=== PATIENT | female | born 1985 | race Caucasian/White ===

== ENCOUNTER 2017-02-08 09:36 | Inpatient (IN) ==
[~2017-02-08 09:36] MED LIST: Famotidine 20 MG/2 ML VIAL IVP PRN; Metoclopramide 10 MG/2 ML VIAL IVP PRN; Naloxone 0.4 MG/ML INJ IVP PRN
--- NOTE | 2017-02-08 09:42 | OB/GYN History & Physical ---
Date of Encounter: 02/08/17 Time of Encounter: 09:39 Assessment and Plan (1) 39 weeks gestation of Current visit: Yes Status: Acute 39 weeks 3 days admit to labor and delivery for favorable cervix at term Cytotec 50 mcg and AROM pain medication and epidural anesthesia upon request IV fluids and admission orders initiated anticipate History of Present Illness Chief complaint: Labor evaluation HPI: Ms. Holley is a 31 year old female 39 weeks 3 days presents for labor evaluation. Seen and evaluated in the office by her OB Dr. Miller, cervix was 6 to 7/80%/-1 with a bulging bag. Estimated due date 02/12/2017. No complaints at this time such as recent illness, fever, headache, changes in vision, abdominal/epigastric pain. Denies any vaginal bleeding, contractions, or leakage of fluid. No complications to date. Endorses good movement. History of 3 normal spontaneous vaginal deliveries without complications. GBS negative, HBV nonreactive, Rubella immune, other serologies reviewed and are negative. Her blood type is O positive. Past Med Surg Social Fam HX - Past Medical History Medical history: other (Hypothyroid) Psychiatric history: no psych history - Past Surgical History Surgical History: appendectomy - Social History Smoking Status: Never smoker Smokeless Tobacco Status: No Alcohol use: none Drug use: none - Family History Mother Hx Family Cardiac Disorders: No Hx Family Respiratory Disorders: No Hx Family Cancer: No Hx Family GI Disorders: No Hx Family Endocrine Disorder: No Hx Family Neuromuscular Disorders: No Hx Family Neurologic Disorders: No Hx Family HEENT Disorders: No Hx Family Autoimmune Disorders: No Obstetrical History - Pregnancies : 4 Para: 3 Term: 3 : 0 Ab's: 0 Livin Medications and Allergies [place] Thyroid 1 tab PO BID 02/08/17 [History] Calcium Carbonate [Calcium] 1 tab PO TID 02/08/17 [History] Kelp 1 each PO DAILY 02/08/17 [History] [place]-3/Dha/Epa/Fish Oil [Fish Oil 1,000 mg Softgel] 2 tab PO DAILY 02/08/17 [ History] Vit Calc,Iron,Folic [ Vitamins] 1 tab PO DAILY 02/08/17 [ History] Allergies No Known Allergies Allergy (Verified 02/08/17 10:07) Review of System OB All systems PM: reviewed and no additional remarkable complaints except as stated Exam - Constitutional Constitutional: well developed, well nourished, no acute distress, average body habitus - HEENT HEENT: EOMI, Normocephaly, Mucus Membranes Moist - Neck Neck exam: full ROM, normal inspection, supple - Lungs Respiratory exam: CTAB - Cardiovascular Cardiovascular exam: RRR, +S1, +S2 - Abdomen Abdomen: Present: bowel sounds normal, gravid, non tender - Extremities Extremities exam: full ROM, normal capillary refill, normal inspection, pedal edema (mild), warm Deep Tendon Reflex Grade: 2+ Normal - Uterus Uterus exam: Present: normal size Results Result Diagrams: 02/08/17 09:55 All other labs normal. - VTE Reasons for not Prescribing Prophylaxis: Treatment not Indicated - Low risk for VTE
[2017-02-08] MEDS ORDERED: Ringers Solution, Lactated 1,000 ML IVC SCH (09:45)
[2017-02-08 10:07] LABS: Basophils % 0.2 %; Eosinophils # 0.1 K/mcL (0.0-0.6); Eosinophils % 0.6 %; Hematocrit 35.3 % (35.3-44.9); Hemoglobin 12.1 g/dL (11.5-15.4); Immature Granulocytes % 0.5 % (0-4); Lymphocytes # 1.9 K/mcL (0.6-4.6); Lymphocytes % 22.2 %; Mean Corpuscular HGB Conc 34.3 g/dL (31.6-35.5); Mean Corpuscular Hemoglobin 31.8 pg (28.0-33.3); Mean Corpuscular Volume 92.7 fL (83.0-100.0); Mean Platelet Volume 9.3 fL (9.4-12.4); Monocytes # 0.6 K/mcL (0.0-1.3); Monocytes % 6.8 %; Platelet Count 168 K/mcL (140-400); Red Blood Count 3.81 M/mcL (3.82-4.97); Red Cell Distribution Width 13.4 % (11.5-14.5); Segmented Neutrophils % 69.7 %
--- NOTE | 2017-02-08 13:10 | OB Labor Progress Note ---
Date of Encounter: 02/08/17 Time of Encounter: 13:08 Labor Progress Note - Subjective Subjective: Pt reports mild pain. - Cervix Cervix: 7/80/-1 - Heart Tones Heart Tones: Category I - [place]: Q2-3 minutes - Interventions Interventions: AROM for large amount clear fluid. - Plan Plan: Continue to monitor. Allow ambulation and intermittent monitoring. Anticipate .
[2017-02-08] MEDS ORDERED: Ringers Solution, Lactated 500 ML IVC ONE (13:47)
[2017-02-08] MEDS ORDERED: *HR* Ropivacaine/PF 0.2% 10 ML AMPUL EP ONE (13:47)
[2017-02-08] MEDS ORDERED: *HR* FentaNYL (PF) 100 MCG/2 ML VIAL EP ONE (13:47)
[2017-02-08] MEDS ORDERED: EPHEDrine 50 MG/ML VIAL IVP PRN (13:47)
--- NOTE | 2017-02-08 13:50 | Anesthesia Evaluation PreOp ---
Date of Encounter: 02/08/17 Time of Encounter: 13:40 - Past History Planned Operation: Labor Epidural Cardiac History: Denies any Significant Hx Pulmonary History: Denies Any Significant HX PRESS LEADER History: Denies Any Significant HX Other Medical History: Thyroid (Hypo) Anesthesia History: No Prior Anesthetic Complications, Past Anesthesia (Appy) : Yes Alcohol Use: none Drug use: none Medications and Allergies [place] Thyroid 1 tab PO BID 02/08/17 [History] Calcium Carbonate [Calcium] 1 tab PO TID 02/08/17 [History] Kelp 1 each PO DAILY 02/08/17 [History] [place]-3/Dha/Epa/Fish Oil [Fish Oil 1,000 mg Softgel] 2 tab PO DAILY 02/08/17 [ History] Vit Calc,Iron,Folic [ Vitamins] 1 tab PO DAILY 02/08/17 [ History] Allergies No Known Allergies Allergy (Verified 02/08/17 10:07) - Meds/Allergy Pre-op Review Medications Reviewed: Yes Allergies Reviewed: Yes Beta Blockers on Current Med List: No Anesthesia Results - Labs 02/08/17 09:55 Anesthesia Exam Weight: 1.6m NPO (# of Hours): 81.1kg Pain Scale: 7 Pain Scale Used: Numeric (1 - 10) - HEENT Pupil (Motor): Pupils equal Mallampati: II Teeth: Normal Oral Opening: Greater than 3 - PRESS LEADER LOC: Oriented PRESS LEADER Motor: Normal RUE, Normal LUE, Normal RLE, Normal LLE, Normal Face PRESS LEADER Sensory: Normal: RUE, LUE, RLE, LLE, Face - Cardiac Rhythm: Regular Murmur: None JVD: No Carotid Bruit: No - Pulmonary Breath Sounds: bilateral Clear Respiratory Effort: Symmetrical Anesthesia Assess/Plan ASA Score: 2 Modified Bryce Scale for Level of Consciousness: Cooperative, oriented, and tranquil Anesthetic Plan: Regional Monitoring Plan: Standard Monitors Recovery Plan: Other
[2017-02-08] MEDS ORDERED: Epidural Premix (fent/bupiv) 110 ML EP ONE (13:51)
[2017-02-08] MEDS ORDERED: *HR* Ropivacaine/PF 0.2% 10 ML AMPUL ONE (13:51)
[2017-02-08] MEDS ORDERED: *HR* FentaNYL (PF) 100 MCG/2 ML VIAL ONE (13:51)
[2017-02-08] MEDS ORDERED: Lidocaine 1% 20 ML MDV ONE (13:57)
[2017-02-08] MEDS ORDERED: Epidural Premix (fent/bupiv) 110 ML EP SCH (14:00)
[2017-02-08] MEDS ORDERED: Oxytocin 20 units/ LR 1000 mL 20 UNIT/1,000 ML BAG IVC ONE ×2 (14:13→15:18)
[2017-02-08] MEDS: Oxytocin 20 units/ LR 1000 mL 20 UNIT/1,000 ML BAG IVC SCH ×2 (14:16→16:20)
--- NOTE | 2017-02-08 14:16 | Anesthesia Procedures ---
Date of Encounter: 02/08/17 Time of Encounter: 14:00 Procedures: Anesthesia - Epidural/Spinal Patient ID/Chart reviewed: Yes Patient examined: Yes OB Eval: Gestational age: 39.3 OB Eval: : 4 OB Eval: Hx Para: 3 OB Eval: Dilated at (cm): 7 OB Eval: Contractions: Non-stressed pattern Consent Obtained: Yes Supplemental Oxygen: None/Room Air Site Prep: Aseptic Technique, Sterile prep and drape, 0.5% Chlorhexidine/Alcohol Patient position: right lateral decubitus Local Anesthetic: Lidocaine 1% Amount of Local Anesthetic used: 2 Touhy Needle Gauge: 18 Touhy Needle Depth (cm): 8 Catheter Depth at Skin (cm): 13 Test Dose (1.5% Lido + Epi): Volume given (mls): 4 Test Dose Result: Negative Loading Dose: Fentanyl (mcg): 100 Loading Dose: Other: Ropiv 0.2% 10mL Loading Dose Administered: Thru Catheter Interspace Used: L3-L4 Loss of Resistance (IRVING): Yes Blood: No CSF: No Paresthesia: No Procedure: x1 attempt at L3-4. Patient tolerated well. Began having urge to push at time of bolus. Patient checked after bolus and complete. Infusion not started but catheter left in place. Vitals + FHT's: FHR stable and VSS throughout. See nursing documentation.
[2017-02-08] MEDS ORDERED: Ibuprofen 600 MG TABLET PO PRN (16:00)
[2017-02-08] MEDS ORDERED: Acetaminophen 325 MG TABLET PO PRN (16:00)
[2017-02-08] MEDS ORDERED: Lanolin 28 GM TUBE TP PRN (16:00)
[2017-02-08] MEDS ORDERED: Measles/Mumps/Rubella Vacc 0.5 ML VIAL SQ PRN (16:00)
--- NOTE | 2017-02-08 17:31 | OB/GYN Procedure Note ---
Delivery - Delivery Date: 02/08/17 Provider: Makeda Miller Intrapartum events: none Delivery induction: none Delivery augmentation: rupture of membranes Delivery monitor: external FHT, external uterine Anesthesia: epidural Estimated Blood Loss: 100 - (s) Infant A Delivery Date: 02/08/17 Delivery Time: 14:11 Presentation: vertex Position: VIKASH Gender: Male Viability: Viable Weight Gram: 3.17 kg at 1 minute: 9 at 5 mins: 9 Shoulder Dystocia: not encountered Specimens collected: cord blood Cord: nuchal cord, 3 umbilical vessels, nuchal reduced - Repair Episiotomy: none Laceration Description: None - Complications Delivery complications: none Delivery comments: Called to room with patient complete and +2 station. Under maternal effort she delivered a viable male with Apgars 9 and 9 at one and 5 minutes respectively over an intact perineum. Following delivery of the head there was a loose nuchal cord that was reduced. The shoulders delivered without difficulty. Infant was placed on mom's abdomen and cord was clamped and cut. Cord blood was collected. Placenta delivered spontaneously, complete, and intact with a three-vessel cord. Mother and infant recovering in the LDR in stable condition. - Disposition Mom disposition: stable in LDR disposition: stable in LDR
[2017-02-08] MEDS ORDERED: Thyroid (Amour) 30 MG TABLET PO SCH (21:00)
[2017-02-09 08:08] VITALS: BP 107/75
--- NOTE | 2017-02-09 08:41 | Discharge Summary ---
Date of Encounter: 02/09/17 Time of Encounter: 08:37 - Discharge Diagnosis (1) Vaginal delivery Priority: Primary Status: Acute Comments: Pt states feeling well. Pain well controlled. . Desires discharge - Discharge Medications Home Medications: [place] Thyroid 1 tab PO BID 02/08/17 [History] Calcium Carbonate [Calcium] 1 tab PO TID 02/08/17 [History] Kelp 1 each PO DAILY 02/08/17 [History] [place]-3/Dha/Epa/Fish Oil [Fish Oil 1,000 mg Softgel] 2 tab PO DAILY 02/08/17 [ History] Vit Calc,Iron,Folic [ Vitamins] 1 tab PO DAILY 02/08/17 [ History] Acetaminophen [Tylenol] 650 mg PO Q6HR PRN #0 tablet 02/09/17 [Rx] Docusate [Colace] 100 mg PO BID capsule 02/09/17 [Rx] Ibuprofen [Motrin] 600 mg PO Q6HR PRN #0 tablet 02/09/17 [Rx] Lanolin 1 appl TP Q4HR PRN #0 tube 02/09/17 [Rx] Allergies/Adverse Reactions: Allergies No Known Allergies Allergy (Verified 02/08/17 10:07) Data Procedures and tests throughout hospitalization: Laboratory Tests 02/08/17 09:55 WBC 8.6 RBC 3.81 L Hgb 12.1 Hct 35.3 MCV 92.7 MCH 31.8 MCHC 34.3 RDW 13.4 Plt Count 168 MPV 9.3 L Immature Gran % 0.5 Seg Neutrophils % 69.7 Lymphocytes % 22.2 Monocytes % 6.8 Eosinophils % 0.6 Basophils % 0.2 Neutrophils # 6.0 Lymphocytes # 1.9 Monocytes # 0.6 Eosinophils # 0.1 Basophils # 0.0 Labs on day of discharge: Labs from last 24 hours 02/08/17 09:55 WBC 8.6 RBC 3.81 L Hgb 12.1 Hct 35.3 MCV 92.7 MCH 31.8 MCHC 34.3 RDW 13.4 Plt Count 168 MPV 9.3 L Immature Gran % 0.5 Seg Neutrophils % 69.7 Lymphocytes % 22.2 Monocytes % 6.8 Eosinophils % 0.6 Basophils % 0.2 Neutrophils # 6.0 Lymphocytes # 1.9 Monocytes # 0.6 Eosinophils # 0.1 Basophils # 0.0 Date of admission: 02/08/17 09:36 Primary care physician: PCP NO Consults: 02/08/17 16:00 Consult to Link Trainer Teacher [CONS] Routine Comment: Vaginal delivery, consult needed Discharging clinician: Bernice Maria Anticipated date of discharge: 02/09/17 - Patient Status Disposition: Home, Self-Care Condition: Good Functional capacity at discharge: independent ambulation Overall status at discharge: patient is back to baseline - Discharge Instructions Follow Up With: RANDALL,PCP [Primary Care Provider] - Makeda Miller, DO [Partnered Physician] - - Diet and Activity Activity: resume usual activities as tolerated Diet: regular diet Hospital Course Reason for admission: active labor Delivery: Episiotomy: none Laceration: none Other procedures: none complications: none Discharge diagnosis: IUP at term delivered baby: male Hospital course: Delivery - Delivery Date: 02/08/17 Provider: Makeda Miller Intrapartum events: none Delivery induction: none Delivery augmentation: rupture of membranes Delivery monitor: external FHT, external uterine Anesthesia: epidural Estimated Blood Loss: 100 - Infant (s) A Delivery Date: 02/08/17 Infant Delivery Time: 14:11 Presentation: vertex Position: VIKASH Gender: Male Viability: Viable Weight Gram: 3.17 kg at 1 minute: 9 at 5 mins: 9 Shoulder Dystocia: not encountered Specimens collected: cord blood Cord: nuchal cord, 3 umbilical vessels, nuchal reduced - Repair Episiotomy: none Laceration Description: None - Complications Delivery complications: none Delivery comments: Called to room with patient complete and +2 station. Under maternal effort she delivered a viable male with Apgars 9 and 9 at one and 5 minutes respectively over an intact perineum. Following delivery of the head there was a loose nuchal cord that was reduced. The shoulders delivered without difficulty. was placed on mom's abdomen and cord was clamped and cut. Cord blood was collected. Placenta delivered spontaneously, complete, and intact with a three-vessel cord. Mother and infant recovering in the LDR in stable condition. - Disposition Mom disposition: stable in PP and appropriate for discharge Time Attestation: Total time spent providing and/or coordinating discharge services: Time Spent: Less than 30 minutes Exam - Constitutional Vitals: Temp Pulse Resp BP Pulse Ox 97.6 F 95 13 107/75 97 02/09/17 07:35 02/09/17 07:35 02/09/17 08:06 02/09/17 07:35 02/09/17 07:35
[2017-02-09] MEDS ORDERED: Prenatal Vit/FA 1 EACH TABLET PO SCH (09:00)
[2017-02-09] MEDS ORDERED: Thyroid (Amour) 30 MG TABLET PO SCH (09:00)
[2017-02-09] MEDS ORDERED: Lanolin 7 G OINT...G. TP PRN (09:43)
== END 2017-02-09 15:45 | disposition home or self-care (01) | DRG 775 ==
LOC: 1NENULAB → 1NENUOBS 17:02
PROVIDERS: ADMIT Emergency Medicine; ATTEND Obstetrics & Gynecology